=== PATIENT | male | born 1995 | race Caucasian/White ===

== ENCOUNTER 2024-10-05 12:26 | Emergency (ER) | payer BC ==
[2024-10-05 13:50] LABS: CORONAVIRUS COVID-19 NAA NEGATIVE (NEGATIVE); INFLUENZA A NAA NEGATIVE (NEGATIVE); RESPIRATORY SYNCYTIAL VIR NAA NEGATIVE (NEGATIVE)
== END 2024-10-05 14:40 | disposition home or self-care (01) ==
LOC: JD.ED 12:26
DX: B34.9 Viral infection, unspecified (principal); Z88.2 Allergy status to sulfonamides; Z88.1 Allergy status to other antibiotic agents; Z88.8 Allergy status to other drugs, medicaments and biological substances
CPT/HCPCS: 87637; 99284; A9270; 99282